=== PATIENT | female | born 1990 | race Caucasian/White ===

== ENCOUNTER 2020-08-25 21:02 | Emergency (ER) | payer OTHER ==
[2020-08-25 21:34] LABS: BILIRUBIN NEGATIVE (NEGATIVE); BLOOD 3+ Ery/uL (NEGATIVE); CLARITY CLOUDY (CLEAR); COLOR YELLOW (YELLOW); GLUCOSE (U) NORMAL (NORMAL); LEUKOCYTES 2+ Leu/uL (NEGATIVE); NITRITE POSITIVE (NEGATIVE); PROTEIN 2+ mg/dL (NEGATIVE); SPECIFIC GRAVITY >=1.030 (1.001-1.030); UROBILINOGEN 0.2 mg/dL (0.2-1.0)
[2020-08-25 21:41] LABS: BACTERIA 3+; URINARY RBC TNTC; URINARY WBC 20-50
[2020-08-25] MEDS ORDERED: PYRIDIUM200 MG PO (21:49)
[2020-08-25] MEDS ORDERED: BACTRIM DS TAB1 EACH PO (21:49)
[2020-08-25] MEDS ORDERED: ZOFRAN4 M1 PO (21:49)
[2020-08-25 22:17] LABS: BASOPHIL 0.4 % (0-2); EOSINOPHIL 1.1 % (0-5); HCT 39.6 % (37.0-47.0); LYMPHOCYTE 16.8 % (15-48); MCH 29.4 pg (25.0-31.0); MCHC 32.8 g/dL (32.0-36.0); MCV 89.6 fL (78.0-100.0); MONOCYTE 5.6 % (0-12); MPV 12.8 fL (6.0-9.5); NRBC 0; PLT 159 K/uL (150-400); RBC 4.42 M/uL (4.20-5.40); RDW 12.9 % (11.5-14.0); WBC 9.8 K/uL (4.0-10.5)
[2020-08-25 22:26] LABS: ALBUMIN 4.2 g/dL (3.4-5.0); BILIRUBIN - TOTAL 0.5 mg/dL (0.2-1.0); BUN/CREAT RATIO (CALC) 23.5 RATIO; CREATININE 0.85 mg/dL (0.51-0.95); GLOBULIN (CALCULATION) 3.5 g/dL; POTASSIUM 3.6 mmol/L (3.5-5.1); TOTAL PROTEIN 7.7 g/dL (6.4-8.2)
[2021-01-28] MEDS ORDERED: SPRINTEC 28 DA1 EACH PO (14:22)
[2021-02-03] MEDS ORDERED: BACTRIM DS TAB1 EACH PO (06:49)
[2021-02-04] MEDS ORDERED: ULTRAM50 MG PO (08:15)
== END 2020-08-25 23:05 | disposition home or self-care (01) ==
LOC: FER 21:02
PROVIDERS: Nurse Practitioner Family
DX: N39.0 Urinary tract infection, site not specified (principal); J45.909 Unspecified asthma, uncomplicated; Z88.1 Allergy status to other antibiotic agents
CPT/HCPCS: 36415; 80053; 81001; 85025; 87076; 87088; 87186; 99284; J1885; J7030

== ENCOUNTER → 2021-02-03 | Day surgery (SDC) | payer OTHER ==
[~2021-02-03] VITALS: Ht 170.2 cm; Wt 63.5 kg
[~2021-02-03] MED LIST: BACTRIM DS TAB1 EACH PO; PYRIDIUM200 MG PO; SPRINTEC 28 DA1 EACH PO; ULTRAM50 MG PO; ZOFRAN4 M1 PO
[2021-02-03 06:53] LABS: HCG (URINE) SCREEN NEGATIVE (NEGATIVE)
== END | disposition home or self-care (01) ==
LOC: FAS 06:37
PROVIDERS: Anesthesiology
DX: K60.2 Anal fissure, unspecified (principal); K64.8 Other hemorrhoids; F32.9 Major depressive disorder, single episode, unspecified; J45.909 Unspecified asthma, uncomplicated; F41.9 Anxiety disorder, unspecified; Z79.2 Long term (current) use of antibiotics
CPT/HCPCS: 84703; J0585-JG; J2250; J2704; J3010; J7120